=== PATIENT | female | born 2000 | race Caucasian/White ===

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

== ENCOUNTER 2021-07-03 18:45 | Inpatient (IN) | payer MEDICAID, OTHER ==
[~2021-07-03] VITALS: Ht 170.2 cm; Wt 84.4 kg
[~2021-07-03 18:45] MED LIST: ARIP10TA38 PO; CITA-144 PO; DIVA-111 PO; GUAN1TAB22 PO
[2021-07-03 20:37] LABS: BASOPHILS % (AUTO) 0.6 % (0.0-2.0); HEMATOCRIT 36.3 % (36-46); HEMOGLOBIN 12.8 g/dL (12.0-16.0); LYMPHOCYTES # (AUTO) 2.4 K/uL (1.0-4.8); LYMPHOCYTES % (AUTO) 29.1 % (22.0-44.0); MEAN CORPUSCULAR HEMOGLOBIN 32.7 pg (26.0-34.0); MEAN CORPUSCULAR HGB CONC 35.2 G/dL (31.0-37.0); MEAN CORPUSCULAR VOLUME 93 fL (80-100); MONOCYTES # (AUTO) 0.5 K/uL (0.1-1.0); MONOCYTES % (AUTO) 5.9 % (2.0-9.0); NEUTROPHILS # (AUTO) 5.2 K/uL (1.8-7.7); NEUTROPHILS % (AUTO) 63.4 % (40.0-70.0); PLATELET COUNT (AUTO) 265 K/uL (150-450); RED BLOOD CELL COUNT(AUTO) 3.91 MIL/uL (4.00-5.20); RED CELL DISTRIBUTION WIDTH 12.4 % (11.5-14.5)
[2021-07-03 20:49] LABS: ANION GAP 8 mmol/L (8-16); CALCIUM, TOTAL 8.9 mg/dL (8.8-10.5); CARBON DIOXIDE 31 mmol/L (22-29); CHLORIDE 103 mmol/L (98-107); CREATININE 0.73 mg/dL (0.60-1.30); GLOMERULAR FILTR. RATE CALC > 60 mL/min (>60); GLUCOSE,RANDOM 96 mg/dL (70-110); SODIUM SERUM 142 mmol/L (136-145); UREA NITROGEN, BLOOD 10 mg/dL (7-18)
[2021-07-03 20:50] LABS: COVID AG,FIA SOURCE NASAL SWAB
[2021-07-03 21:01] LABS: ALANINE AMINOTRANSFERASE 12 U/L (12-78); ALBUMIN 3.7 g/dL (3.4-5.0); ALKALINE PHOSPHATASE 88 U/L (46-116); ASPARTATE AMINOTRANSFERASE 13 U/L (15-37); BILIRUBIN,TOTAL 0.3 mg/dL (0.1-1.0); HCG,QUANTITATIVE < 1 mIU/mL (0-6); TOTAL PROTEIN, SERUM 7.4 g/dL (6.4-8.2); VALPROIC ACID 31 mcg/mL (50-100)
[2021-07-03 21:11] LABS: AMPHET/METH SCREEN,URINE NEGATIVE (NEGATIVE); BARBITURATE SCREEN, URINE NEGATIVE (NEGATIVE); BENZODIAZEPINES SCREEN,URINE NEGATIVE (NEGATIVE); CANNABINOID SCREEN,URINE NEGATIVE (NEGATIVE); COCAINE SCREEN,URINE NEGATIVE (NEGATIVE); METHADONE SCREEN, URINE NEGATIVE (NEGATIVE); OPIATE SCREEN,URINE NEGATIVE (NEGATIVE)
[2021-07-03 21:15] LABS: PHENCYCLIDINE SCREEN,URINE NEGATIVE (NEGATIVE)
[2021-07-03] MEDS ORDERED: OLANZapine 5 MG RAPDIS TABLET PO ONE (21:15)
[2021-07-03] MEDS ORDERED: LORazepam 2 MG TABLET PO ONE (21:15)
[2021-07-03] MEDS ORDERED: ZOLPIDEM TARTRATE 10 MG TABLET PO PRN (21:45)
[2021-07-03 21:55] LABS: APPEARANCE,URINE CLOUDY (CLEAR); BILIRUBIN,URINE NEGATIVE (NEGATIVE); GLUCOSE, URINE (UA) NEGATIVE (NEGATIVE); KETONES,URINE NEGATIVE (NEGATIVE); LEUKOCYTE ESTERASE ,URINE SMALL (NEGATIVE); NITRATE,URINE NEGATIVE (NEGATIVE); OCCULT BLOOD,URINE LARGE (NEGATIVE); PH,URINE 7.5 (5.0-8.0); PROTEIN,URINE NEGATIVE (NEGATIVE)
[2021-07-03 22:54] LABS: BACTERIA,URINE Moderate /HPF (None Seen); SQUAMOUS EPITHELIAL CELL,UR Few /LPF (None Seen); WBC,URINE 0-2 /HPF (0-5)
[2021-07-04 05:34] VITALS: BP 124/70
[2021-07-04] MEDS: LORazepam 2 MG TABLET PO PRN ×3 (06:39→16:45)
[2021-07-04] MEDS ORDERED: INFLUENZA VIRUS VACCINE QVS 2021-22 (6MO+)/PF 60 MCG/0.5 ML SYRINGE IM. ONE (07:15)
[2021-07-04 08:22] VITALS: BP 126/66
[2021-07-04] MEDS: OLANZapine 5 MG RAPDIS TABLET PO PRN (08:56)
[2021-07-04] MEDS ORDERED: ACETAMINOPHEN 325 MG TABLET PO PRN ×2 (09:30→15:00)
[2021-07-04] MEDS: NICOTINE 14 MG/24 HOUR PATCH TD PRN (12:17)
[2021-07-04] MEDS ORDERED: HydrOXYzine PAMOATE 50 MG CAPSULE PO PRN (15:00)
[2021-07-04] MEDS ORDERED: PROMETHAZINE HCL 25 MG TABLET PO PRN (15:00)
[2021-07-04] MEDS ORDERED: MAG HYDROX/AL HYDROX/SIMETH ES 30 ML SUSPENSION UDCUP PO PRN (15:00)
[2021-07-04] MEDS ORDERED: LOPERAMIDE HCL 2 MG CAPSULE PO PRN (15:00)
[2021-07-04] MEDS ORDERED: MAGNESIUM HYDROXIDE SUSPENSION 30 ML UDCUP PO PRN (15:00)
[2021-07-04] MEDS ORDERED: TUBERCULIN, PURIFIED PROTEIN DERIVATIVE 5 TU/0.1 ML SYRINGE ID ONE (15:00)
[2021-07-04] MEDS ORDERED: GuaiFENesin/D-METHORPHAN [SUGAR-FREE] 200-20MG/10 ML SYRUP UDCUP PO PRN (15:00)
[2021-07-04 16:13] VITALS: BP 117/68
[2021-07-04] MEDS: THIAMINE 100 MG TABLET PO SCH (16:45)
[2021-07-04] MEDS: DIVALPROEX SODIUM 500 MG ER TABLET PO SCH (20:31)
[2021-07-04] MEDS: MELATONIN 5 MG TABLET PO SCH (20:31)
[2021-07-04] MEDS: OLANZapine 5 MG RAPDIS TABLET PO SCH (20:32)
[2021-07-05 01:07] VITALS: BP 119/67
[2021-07-05 08:21] LABS: CHOL/HDL RATIO 4.8 (3.9-5.7); FREE T4 (FREE THYROXINE) 0.91 ng/dL (0.76-1.46); HEMOGLOBIN A1C 5.1 % (3.8-5.6); THYROID STIMULATING HORMONE 2.22 uIU/mL (0.36-3.74)
[2021-07-05] MEDS: FLUoxetine HCL 20 MG CAPSULE PO SCH (08:59)
[2021-07-05] MEDS: LORazepam 2 MG TABLET PO PRN ×2 (08:59→13:53)
[2021-07-05] MEDS: MULTIVITAMINS WITH MINERALS, THERAPEUTIC TABLET PO SCH (08:59)
[2021-07-05] MEDS: THIAMINE 100 MG TABLET PO SCH ×2 (08:59→16:38)
[2021-07-05] MEDS: OMEGA-3/DHA/EPA/FISH OIL 1,000 MG CAPSULE PO SCH (08:59)
[2021-07-05] MEDS: FOLIC ACID 1 MG TABLET PO SCH (08:59)
[2021-07-05 09:30] VITALS: BP 118/72
[2021-07-05] MEDS: OLANZapine 5 MG RAPDIS TABLET PO PRN (13:53)
[2021-07-05 16:20] VITALS: BP 100/61
[2021-07-05] MEDS: OLANZapine 5 MG RAPDIS TABLET PO SCH (20:02)
[2021-07-05] MEDS: MELATONIN 5 MG TABLET PO SCH (20:02)
[2021-07-05] MEDS: DIVALPROEX SODIUM 500 MG ER TABLET PO SCH (20:02)
[2021-07-05] MEDS ORDERED: ChlorproMAZINE HCL 100 MG TABLET PO PRN (20:30)
[2021-07-05] MEDS ORDERED: LORazepam 2 MG TABLET PO ONE (20:30)
[2021-07-05] MEDS: GABAPENTIN 300 MG CAPSULE PO SCH (20:58)
[2021-07-05] MEDS: TraZODone HCL 100 MG TABLET PO SCH (20:58)
[2021-07-05] MEDS ORDERED: ChlorproMAZINE HCL 100 MG TABLET PO SCH (21:00)
[2021-07-06 06:01] VITALS: BP 111/64
[2021-07-06] MEDS: MULTIVITAMINS WITH MINERALS, THERAPEUTIC TABLET PO SCH (08:10)
[2021-07-06] MEDS: THIAMINE 100 MG TABLET PO SCH ×2 (08:10→16:35)
[2021-07-06] MEDS: OMEGA-3/DHA/EPA/FISH OIL 1,000 MG CAPSULE PO SCH (08:10)
[2021-07-06] MEDS: FLUoxetine HCL 20 MG CAPSULE PO SCH (08:10)
[2021-07-06] MEDS: FOLIC ACID 1 MG TABLET PO SCH (08:10)
[2021-07-06] MEDS: GABAPENTIN 300 MG CAPSULE PO SCH ×4 (08:10→20:39)
[2021-07-06 08:45] VITALS: BP 120/62
[2021-07-06] MEDS: NICOTINE 14 MG/24 HOUR PATCH TD PRN (11:19)
[2021-07-06 16:14] VITALS: BP 106/69
[2021-07-06] MEDS: TraZODone HCL 100 MG TABLET PO SCH (20:39)
[2021-07-06] MEDS: MELATONIN 5 MG TABLET PO SCH (20:39)
[2021-07-06] MEDS: DIVALPROEX SODIUM 500 MG ER TABLET PO SCH (20:39)
[2021-07-06] MEDS: OLANZapine 5 MG RAPDIS TABLET PO SCH (20:40)
[2021-07-07 04:05] VITALS: BP 139/61
[2021-07-07 06:25] VITALS: BP 132/72
[2021-07-07] MEDS: LORazepam 2 MG TABLET PO PRN ×2 (06:32→12:13)
[2021-07-07] MEDS: OLANZapine 5 MG RAPDIS TABLET PO PRN (06:32)
[2021-07-07 08:36] VITALS: BP 120/75
[2021-07-07] MEDS: GABAPENTIN 300 MG CAPSULE PO SCH ×4 (08:46→20:12)
[2021-07-07] MEDS: THIAMINE 100 MG TABLET PO SCH ×2 (08:46→16:20)
[2021-07-07] MEDS: MULTIVITAMINS WITH MINERALS, THERAPEUTIC TABLET PO SCH (08:46)
[2021-07-07] MEDS: FOLIC ACID 1 MG TABLET PO SCH (08:46)
[2021-07-07] MEDS: OMEGA-3/DHA/EPA/FISH OIL 1,000 MG CAPSULE PO SCH (08:46)
[2021-07-07] MEDS: FLUoxetine HCL 20 MG CAPSULE PO SCH (08:47)
[2021-07-07] MEDS: NICOTINE 14 MG/24 HOUR PATCH TD PRN (12:13)
[2021-07-07 16:38] VITALS: BP 127/69
[2021-07-07] MEDS: TraZODone HCL 100 MG TABLET PO SCH (20:11)
[2021-07-07] MEDS: DIVALPROEX SODIUM 500 MG ER TABLET PO SCH (20:11)
[2021-07-07] MEDS: MELATONIN 5 MG TABLET PO SCH (20:12)
[2021-07-07] MEDS: OLANZapine 10 MG RAPDIS TABLET PO SCH (20:14)
[2021-07-07] MEDS ORDERED: PETROLATUM,WHITE 28 GM JELLY TP ONE (20:45)
[2021-07-08 00:27] VITALS: BP 122/70
[2021-07-08 04:06] LABS: HIV 1-2 SCREEN 4TH GEN W/RFLX Non Reactive (Non Reactive)
[2021-07-08] MEDS: FLUoxetine HCL 20 MG CAPSULE PO SCH (08:06)
[2021-07-08] MEDS: THIAMINE 100 MG TABLET PO SCH ×2 (08:06→17:00)
[2021-07-08] MEDS: MULTIVITAMINS WITH MINERALS, THERAPEUTIC TABLET PO SCH (08:06)
[2021-07-08] MEDS: LORazepam 2 MG TABLET PO PRN ×2 (08:06→12:31)
[2021-07-08] MEDS: FOLIC ACID 1 MG TABLET PO SCH (08:06)
[2021-07-08] MEDS: GABAPENTIN 300 MG CAPSULE PO SCH ×3 (08:06→17:00)
[2021-07-08] MEDS: OMEGA-3/DHA/EPA/FISH OIL 1,000 MG CAPSULE PO SCH (08:06)
[2021-07-08 08:35] VITALS: BP 121/76
[2021-07-08] MEDS: NICOTINE 14 MG/24 HOUR PATCH TD PRN (10:58)
[2021-07-08] MEDS: OLANZapine 10 MG RAPDIS TABLET PO SCH (20:17)
[2021-07-08] MEDS: TraZODone HCL 100 MG TABLET PO SCH (20:17)
[2021-07-08] MEDS: MELATONIN 5 MG TABLET PO SCH (20:17)
[2021-07-08] MEDS: DIVALPROEX SODIUM 500 MG ER TABLET PO SCH (20:17)
[2021-07-08] MEDS: GABAPENTIN 400 MG CAPSULE PO SCH (20:20)
[2021-07-09 00:54] VITALS: BP 119/72
[2021-07-09] MEDS: FLUoxetine HCL 20 MG CAPSULE PO SCH (08:25)
[2021-07-09] MEDS: GABAPENTIN 400 MG CAPSULE PO SCH ×4 (08:25→20:28)
[2021-07-09] MEDS: THIAMINE 100 MG TABLET PO SCH ×2 (08:25→16:19)
[2021-07-09] MEDS: OMEGA-3/DHA/EPA/FISH OIL 1,000 MG CAPSULE PO SCH (08:25)
[2021-07-09] MEDS: FOLIC ACID 1 MG TABLET PO SCH (08:25)
[2021-07-09] MEDS: MULTIVITAMINS WITH MINERALS, THERAPEUTIC TABLET PO SCH (08:26)
[2021-07-09 08:44] VITALS: BP 129/68
[2021-07-09] MEDS: NICOTINE 14 MG/24 HOUR PATCH TD PRN (09:08)
[2021-07-09 10:25] LABS: GLUCOMETER DEV NAME(LOC) POC.BV
[2021-07-09] MEDS: LORazepam 2 MG TABLET PO PRN ×2 (11:09→16:19)
[2021-07-09 16:44] VITALS: BP 146/73
[2021-07-09] MEDS: MELATONIN 5 MG TABLET PO SCH (20:28)
[2021-07-09] MEDS: TraZODone HCL 100 MG TABLET PO SCH (20:28)
[2021-07-09] MEDS: DIVALPROEX SODIUM 500 MG ER TABLET PO SCH (20:28)
[2021-07-09] MEDS: OLANZapine 10 MG RAPDIS TABLET PO SCH (20:28)
[2021-07-10 01:04] VITALS: BP 129/70
[2021-07-10] MEDS: GABAPENTIN 400 MG CAPSULE PO SCH ×2 (08:09→12:09)
[2021-07-10] MEDS: OMEGA-3/DHA/EPA/FISH OIL 1,000 MG CAPSULE PO SCH (08:09)
[2021-07-10] MEDS: THIAMINE 100 MG TABLET PO SCH (08:09)
[2021-07-10] MEDS: FOLIC ACID 1 MG TABLET PO SCH (08:10)
[2021-07-10] MEDS: MULTIVITAMINS WITH MINERALS, THERAPEUTIC TABLET PO SCH (08:10)
[2021-07-10] MEDS: FLUoxetine HCL 20 MG CAPSULE PO SCH (08:10)
[2021-07-10 08:27] VITALS: BP 106/60
[2021-07-10] MEDS: NICOTINE 14 MG/24 HOUR PATCH TD PRN (08:43)
[2021-07-10] MEDS ORDERED: DIVA-80 PO (09:53)
[2021-07-10] MEDS ORDERED: TRAZ-257 PO (09:53)
[2021-07-10] MEDS ORDERED: GABA-1201 PO (09:53)
[2021-07-10] MEDS ORDERED: OMEG-135 PO (09:53)
[2021-07-10] MEDS ORDERED: OLAN10TA26 PO (09:53)
[2021-07-10] MEDS ORDERED: PROZ20 PO (09:53)
[2021-07-10] MEDS ORDERED: MELA5TAB40 PO (09:53)
== END 2021-07-10 13:16 | disposition home or self-care (01) | DRG 753 ==
LOC: EMS 18:59 → B3A 07-04 00:16 → B2S 07-04 02:15
PROVIDERS: ADMIT Psychiatry & Neurology Psychiatry; ATTEND Psychiatry & Neurology Psychiatry
DX: F31.64 Bipolar disorder, current episode mixed, severe, with psychotic features (principal); R45.851 Suicidal ideations; F79 Unspecified intellectual disabilities; F12.90 Cannabis use, unspecified, uncomplicated; F43.10 Post-traumatic stress disorder, unspecified; F90.9 Attention-deficit hyperactivity disorder, unspecified type; Z63.9 Problem related to primary support group, unspecified; G47.00 Insomnia, unspecified; Z55.9 Problems related to education and literacy, unspecified; Z59.9 Problem related to housing and economic circumstances, unspecified; Z65.3 Problems related to other legal circumstances; Z79.899 Other long term (current) drug therapy; Z20.822 Contact with and (suspected) exposure to COVID-19
CPT/HCPCS: 80053; 80061; 80164; 81001; 83036; 84439; 84443; 84702; 85025; 86592; 87086; 87389; 87491; 87591; 90686; 99285; G0480; Q9967

== ENCOUNTER 2023-04-29 01:04 | Inpatient (IN) | payer MEDICAID ==
[~2023-04-29] VITALS: Ht 165.1 cm; Wt 97.1 kg
[~2023-04-29 01:04] MED LIST changes: -ARIP10TA38 PO; -CITA-144 PO; -DIVA-111 PO; +DIVA500T53 PO; +GABA-1201 PO; -GUAN1TAB22 PO; +MELA5TAB40 PO; +OLAN10TA26 PO; +OMEG-135 PO; +PROZ20 PO; +TRAZ-257 PO
[2023-04-29] MEDS ORDERED: IBUPROFEN 600 MG TABLET PO PRN (03:30)
[2023-04-29] MEDS ORDERED: BACITRACIN 28 GM OINTMENT TP PRN (03:30)
[2023-04-29] MEDS ORDERED: ALBUTEROL SULFATE HFA 90 MCG/PUFF 8 GM INHALER IH PRN (03:30)
[2023-04-29] MEDS ORDERED: DOCUSATE SODIUM 100 MG CAPSULE PO PRN (03:30)
[2023-04-29] MEDS ORDERED: MAG HYDROX/ALUMINUM HYD/SIMETH ES 30 ML SUSPENSION UDCUP PO PRN (03:30)
[2023-04-29] MEDS ORDERED: CloNIDine HCL 0.1 MG TABLET PO PRN (03:30)
[2023-04-29] MEDS ORDERED: BENZOCAINE/MENTHOL LOZENGE PO PRN (03:30)
[2023-04-29] MEDS ORDERED: ACETAMINOPHEN 325 MG TABLET PO PRN (03:30)
[2023-04-29] MEDS ORDERED: MAGNESIUM HYDROXIDE SUSPENSION 30 ML UDCUP PO PRN (03:30)
[2023-04-29] MEDS ORDERED: ONDANSETRON HCL 4 MG TABLET PO PRN (03:30)
[2023-04-29] MEDS ORDERED: OMEPRAZOLE 20 MG CAPSULE PO PRN (03:30)
[2023-04-29] MEDS ORDERED: PETROLATUM,WHITE 28 GM JELLY TP PRN (03:30)
[2023-04-29 03:33] VITALS: BP 127/69; PULSE 99; RESP 18; TEMP 98; O2SAT 99
[2023-04-29] MEDS: LORazepam 2 MG TABLET PO PRN ×2 (03:50→08:10)
[2023-04-29] MEDS ORDERED: INFLUENZA VIRUS VACCINE QVS 2023-24 (6MO+)/PF 60 MCG/0.5 ML SYRINGE IM. ONE (06:30)
[2023-04-29] MEDS: HALOPERIDOL 5 MG TABLET PO PRN (08:10)
[2023-04-29 08:11] VITALS: BP 118/79; PULSE 96; RESP 16; TEMP 98.2; O2SAT 98
[2023-04-29] MEDS ORDERED: DIVA-112 PO (09:10)
[2023-04-29] MEDS ORDERED: OMEG1CAP45 PO (09:10)
[2023-04-29] MEDS ORDERED: IBUP-2492 PO (09:10)
[2023-04-29] MEDS ORDERED: CHLO50TA61 PO (09:10)
[2023-04-29] MEDS ORDERED: CHLO25TA69 PO (09:10)
[2023-04-29] MEDS ORDERED: BENZ1TAB84 PO (09:10)
[2023-04-29] MEDS ORDERED: TRAZ150T80 PO (09:10)
[2023-04-29] MEDS ORDERED: OLAN1TAB3 PO (09:10)
[2023-04-29] MEDS ORDERED: LOPE-232 PO (09:10)
[2023-04-29] MEDS: DIVALPROEX SODIUM 500 MG DR TABLET PO SCH (16:02)
[2023-04-29 20:00] VITALS: BP 142/87; PULSE 89; RESP 18; TEMP 97.3; O2SAT 98
[2023-04-29] MEDS: OLANZapine 10 MG RAPDIS TABLET PO SCH (20:05)
[2023-04-29] MEDS: ZOLPIDEM TARTRATE 10 MG TABLET PO PRN (20:46)
[2023-04-30 08:03] LABS: BASOPHILS % (AUTO) 0.6 % (0.0-2.0); EOSINOPHILS % (AUTO) 0.7 % (1.0-6.0); HEMATOCRIT 35.2 % (36-46); HEMOGLOBIN 12.4 g/dL (12.0-16.0); LYMPHOCYTES # (AUTO) 3.4 K/uL (1.0-4.8); LYMPHOCYTES % (AUTO) 40.6 % (22.0-44.0); MEAN CORPUSCULAR HEMOGLOBIN 32.8 pg (26.0-34.0); MEAN CORPUSCULAR HGB CONC 35.2 G/dL (31.0-37.0); MEAN CORPUSCULAR VOLUME 93 fL (80-100); MONOCYTES # (AUTO) 0.7 K/uL (0.1-1.0); MONOCYTES % (AUTO) 8.5 % (2.0-9.0); NEUTROPHILS # (AUTO) 4.1 K/uL (1.8-7.7); NEUTROPHILS % (AUTO) 49.6 % (40.0-70.0); PLATELET COUNT (AUTO) 277 K/uL (150-450); RED BLOOD CELL COUNT(AUTO) 3.78 MIL/uL (4.00-5.20); RED CELL DISTRIBUTION WIDTH 13.1 % (11.5-14.5); WHITE BLOOD COUNT (AUTO) 8.3 K/uL (4.5-11.0)
[2023-04-30 08:04] LABS: ALANINE AMINOTRANSFERASE 13 U/L (12-78); ALBUMIN 3.3 g/dL (3.4-5.0); ALKALINE PHOSPHATASE 61 U/L (46-116); ANION GAP 4 mmol/L (8-16); ASPARTATE AMINOTRANSFERASE 13 U/L (15-37); BILIRUBIN,TOTAL 0.8 mg/dL (0.1-1.0); CALCIUM, TOTAL 8.6 mg/dL (8.8-10.5); CARBON DIOXIDE 30 mmol/L (22-29); CHLORIDE 105 mmol/L (98-107); CHOL/HDL RATIO 6.5 (3.9-5.7); CHOLESTEROL 227 mg/dL (131-200); CREATININE 0.44 mg/dL (0.60-1.30); FREE T4 (FREE THYROXINE) 1.07 ng/dL (0.76-1.46); GLOMERULAR FILTR. RATE CALC > 60 mL/min (>60); GLUCOSE,RANDOM 92 mg/dL (70-110); HCG,QUANTITATIVE < 1 mIU/mL (0-6); HDL CHOLESTEROL 35 mg/dL (40-60); LDL CHOL (CALC.) 161 mg/dL (0-130); POTASSIUM 3.9 mmol/L (3.5-5.1); SODIUM SERUM 139 mmol/L (136-145); THYROID STIMULATING HORMONE 2.25 uIU/mL (0.36-3.74); TOTAL PROTEIN, SERUM 6.8 g/dL (6.4-8.2); TRIGLYCERIDES 153 mg/dL (15-150); UREA NITROGEN, BLOOD 6 mg/dL (7-18)
[2023-04-30 08:32] VITALS: BP 121/69; PULSE 80; RESP 16; TEMP 97.9; O2SAT 96
[2023-04-30] MEDS: HALOPERIDOL 5 MG TABLET PO PRN ×2 (08:40→16:09)
[2023-04-30] MEDS: DIVALPROEX SODIUM 500 MG DR TABLET PO SCH ×2 (08:40→16:09)
[2023-04-30] MEDS: LORazepam 2 MG TABLET PO PRN ×2 (08:40→16:09)
[2023-04-30] MEDS ORDERED: PEG 400/HYPROMELLOSE/GLYCERIN 15 ML OPHTHALMIC SOLUTION OU PRN (14:45)
[2023-04-30] MEDS: RisperiDONE 3 MG TABLET PO SCH (16:09)
[2023-04-30] MEDS: LITHIUM CARBONATE 300 MG CAPSULE PO SCH (16:09)
[2023-04-30] MEDS: OLANZapine 10 MG RAPDIS TABLET PO SCH (20:30)
[2023-04-30] MEDS: BENZTROPINE MESYLATE 2 MG TABLET PO SCH (20:31)
[2023-04-30 20:55] VITALS: BP 131/85; PULSE 99; RESP 18; TEMP 97.3
[2023-04-30] MEDS: LOPERAMIDE HCL 2 MG CAPSULE PO PRN (22:10)
[2023-05-01] MEDS: HALOPERIDOL 5 MG TABLET PO PRN (08:10)
[2023-05-01] MEDS: DIVALPROEX SODIUM 500 MG DR TABLET PO SCH ×2 (08:10→16:16)
[2023-05-01] MEDS: LITHIUM CARBONATE 300 MG CAPSULE PO SCH ×2 (08:10→16:15)
[2023-05-01] MEDS: RisperiDONE 3 MG TABLET PO SCH ×2 (08:10→16:15)
[2023-05-01] MEDS: LORazepam 2 MG TABLET PO PRN ×2 (08:10→17:54)
[2023-05-01 09:04] VITALS: BP 129/75; PULSE 100; RESP 18; TEMP 97.5; O2SAT 98
[2023-05-01] MEDS: BENZTROPINE MESYLATE 2 MG TABLET PO SCH (20:49)
[2023-05-01] MEDS: OLANZapine 10 MG RAPDIS TABLET PO SCH (20:53)
[2023-05-01 23:16] VITALS: BP 144/83; PULSE 79; RESP 18; TEMP 97.5; O2SAT 99
[2023-05-02] MEDS: DIVALPROEX SODIUM 500 MG DR TABLET PO SCH ×2 (08:09→16:17)
[2023-05-02] MEDS: LITHIUM CARBONATE 300 MG CAPSULE PO SCH ×2 (08:09→16:17)
[2023-05-02] MEDS: LORazepam 2 MG TABLET PO PRN ×2 (08:09→20:07)
[2023-05-02] MEDS: RisperiDONE 3 MG TABLET PO SCH ×2 (08:09→16:17)
[2023-05-02 08:55] VITALS: BP 146/73; PULSE 100; RESP 17; TEMP 97.6; O2SAT 97
[2023-05-02] MEDS: LOPERAMIDE HCL 2 MG CAPSULE PO PRN (18:02)
[2023-05-02] MEDS: BENZTROPINE MESYLATE 2 MG TABLET PO SCH (20:07)
[2023-05-02] MEDS: OLANZapine 10 MG RAPDIS TABLET PO SCH (20:07)
[2023-05-02 21:00] VITALS: BP 132/62; PULSE 79; RESP 18; TEMP 97.8
[2023-05-02] MEDS: ZOLPIDEM TARTRATE 10 MG TABLET PO PRN (21:26)
[2023-05-03] MEDS: RisperiDONE 3 MG TABLET PO SCH ×2 (08:29→16:55)
[2023-05-03] MEDS: LITHIUM CARBONATE 300 MG CAPSULE PO SCH ×2 (08:29→16:55)
[2023-05-03] MEDS: DIVALPROEX SODIUM 500 MG DR TABLET PO SCH ×2 (08:29→16:55)
[2023-05-03 08:54] VITALS: BP 120/70; PULSE 100; RESP 16; TEMP 98.6; O2SAT 97
[2023-05-03] MEDS: LORazepam 2 MG TABLET PO PRN ×2 (12:44→16:55)
[2023-05-03] MEDS: HALOPERIDOL 5 MG TABLET PO PRN (12:44)
[2023-05-03 16:50] VITALS: RESP 18
[2023-05-03 18:00] VITALS: RESP 18
[2023-05-03 20:20] VITALS: BP 124/83; PULSE 100; RESP 18; TEMP 97.5
[2023-05-03 20:30] VITALS: RESP 19
[2023-05-03] MEDS: BENZTROPINE MESYLATE 2 MG TABLET PO SCH (20:54)
[2023-05-03] MEDS: OLANZapine 10 MG RAPDIS TABLET PO SCH (20:54)
[2023-05-04] MEDS: LITHIUM CARBONATE 300 MG CAPSULE PO SCH (08:07)
[2023-05-04] MEDS: DIVALPROEX SODIUM 500 MG DR TABLET PO SCH (08:08)
[2023-05-04] MEDS: RisperiDONE 3 MG TABLET PO SCH (08:08)
[2023-05-04] MEDS: HALOPERIDOL 5 MG TABLET PO PRN (08:28)
[2023-05-04] MEDS: LORazepam 2 MG TABLET PO PRN (08:28)
[2023-05-04 08:33] LABS: LITHIUM 0.3 mmol/L (0.60-1.20)
[2023-05-04 09:33] VITALS: BP 149/73; PULSE 108; RESP 18; TEMP 98.4
[2023-05-04] MEDS ORDERED: DIVA-112 PO (13:15)
[2023-05-04] MEDS ORDERED: LITH300C3 PO (13:15)
[2023-05-04] MEDS ORDERED: OLAN10TA26 PO (13:16)
[2023-05-04] MEDS ORDERED: RISP3TAB63 PO (13:16)
[2023-05-04] MEDS ORDERED: BENZ2TAB71 PO (13:17)
== END 2023-05-04 14:15 | disposition home or self-care (01) | DRG 750 ==
LOC: B3A 02:05
PROVIDERS: ADMIT Psychiatry & Neurology Psychiatry; ATTEND Psychiatry & Neurology Psychiatry
DX: F25.9 Schizoaffective disorder, unspecified (principal); F29 Unspecified psychosis not due to a substance or known physiological condition; Z81.8 Family history of other mental and behavioral disorders; F32.9 Major depressive disorder, single episode, unspecified; F41.9 Anxiety disorder, unspecified; G47.00 Insomnia, unspecified; E66.9 Obesity, unspecified; K59.00 Constipation, unspecified; Z68.35 Body mass index [BMI] 35.0-35.9, adult
CPT/HCPCS: 80053; 80061; 80164; 80178; 84436; 84439; 84443; 84702; 85025; 87081

== ENCOUNTER 2023-06-18 23:22 | Inpatient (IN) | payer MEDICAID, OTHER ==
[~2023-06-18] VITALS: Ht 162.6 cm; Wt 97.1 kg
[~2023-06-18 23:22] MED LIST changes: +BENZ2TAB71 PO; +DIVA-112 PO; -DIVA500T53 PO; -GABA-1201 PO; +LITH300C3 PO; -MELA5TAB40 PO; -OMEG-135 PO; -PROZ20 PO; +RISP3TAB63 PO; -TRAZ-257 PO
[2023-06-19 00:04] LABS: BASOPHILS % (AUTO) 0.5 % (0.0-2.0); EOSINOPHILS % (AUTO) 1.1 % (1.0-6.0); HEMATOCRIT 35.3 % (36-46); LYMPHOCYTES # (AUTO) 2.9 K/uL (1.0-4.8); LYMPHOCYTES % (AUTO) 30.5 % (22.0-44.0); MEAN CORPUSCULAR HEMOGLOBIN 31.8 pg (26.0-34.0); MEAN CORPUSCULAR VOLUME 94 fL (80-100); MONOCYTES # (AUTO) 0.7 K/uL (0.1-1.0); MONOCYTES % (AUTO) 7.8 % (2.0-9.0); NEUTROPHILS # (AUTO) 5.7 K/uL (1.8-7.7); NEUTROPHILS % (AUTO) 60.1 % (40.0-70.0); PLATELET COUNT (AUTO) 265 K/uL (150-450); RED BLOOD CELL COUNT(AUTO) 3.78 MIL/uL (4.00-5.20); RED CELL DISTRIBUTION WIDTH 12.8 % (11.5-14.5); WHITE BLOOD COUNT (AUTO) 9.4 K/uL (4.5-11.0)
[2023-06-19 00:14] LABS: ANION GAP 10 mmol/L (8-16); CALCIUM, TOTAL 8.8 mg/dL (8.8-10.5); CARBON DIOXIDE 24 mmol/L (22-29); CHLORIDE 104 mmol/L (98-107); CREATININE 0.57 mg/dL (0.60-1.30); GLOMERULAR FILTR. RATE CALC > 60 mL/min (>60); GLUCOSE,RANDOM 109 mg/dL (70-110); POTASSIUM 3.7 mmol/L (3.5-5.1); SODIUM SERUM 138 mmol/L (136-145); UREA NITROGEN, BLOOD 7 mg/dL (7-18)
[2023-06-19 00:19] LABS: ALANINE AMINOTRANSFERASE 9 U/L (12-78); ALBUMIN 3.6 g/dL (3.4-5.0); ALKALINE PHOSPHATASE 65 U/L (46-116); ASPARTATE AMINOTRANSFERASE 12 U/L (15-37); BILIRUBIN,TOTAL 0.3 mg/dL (0.1-1.0); TOTAL PROTEIN, SERUM 6.9 g/dL (6.4-8.2)
[2023-06-19 00:38] LABS: ALCOHOL, BLOOD (SERUM) < 3 mg/dL (0-10)
[2023-06-19] MEDS ORDERED: OLANZapine 5 MG TABLET PO ONE (01:45)
[2023-06-19] MEDS ORDERED: ACETAMINOPHEN 500 MG TABLET PO ONE (02:00)
[2023-06-19] MEDS ORDERED: IBUPROFEN 600 MG TABLET PO ONE (02:00)
[2023-06-19 02:04] LABS: LITHIUM 0.4 mmol/L (0.60-1.20)
[2023-06-19 03:45] LABS: COVID AG,FIA SOURCE NASAL SWAB
[2023-06-19] MEDS ORDERED: LORazepam 2 MG TABLET PO PRN (03:45)
[2023-06-19] MEDS ORDERED: ZOLPIDEM TARTRATE 10 MG TABLET PO PRN (03:45)
[2023-06-19 03:56] LABS: SARS-COV2 (COVID) ANTIGEN,FIA Negative (Negative)
[2023-06-19 08:12] VITALS: BP 125/67; PULSE 105; RESP 16; TEMP 97.1; O2SAT 100
[2023-06-19] MEDS: DIVALPROEX SODIUM 500 MG DR TABLET PO SCH (17:26)
[2023-06-19] MEDS: LITHIUM CARBONATE 300 MG CAPSULE PO SCH (17:26)
[2023-06-19] MEDS: RisperiDONE 3 MG TABLET PO SCH (17:26)
[2023-06-19] MEDS ORDERED: IBUPROFEN 400 MG TABLET PO PRN (17:30)
[2023-06-19] MEDS: BENZTROPINE MESYLATE 2 MG TABLET PO SCH (20:34)
[2023-06-19 21:57] VITALS: BP 118/72; PULSE 78; RESP 18; TEMP 97.5; O2SAT 98
[2023-06-20] MEDS: LITHIUM CARBONATE 300 MG CAPSULE PO SCH ×2 (08:18→16:19)
[2023-06-20] MEDS: RisperiDONE 3 MG TABLET PO SCH ×2 (08:18→16:19)
[2023-06-20] MEDS: DIVALPROEX SODIUM 500 MG DR TABLET PO SCH ×2 (08:18→16:19)
[2023-06-20 08:22] VITALS: BP 103/65; PULSE 78; RESP 16; TEMP 97.9; O2SAT 98
[2023-06-20 10:17] VITALS: RESP 16; O2SAT 98
[2023-06-20 11:17] VITALS: RESP 16; O2SAT 99
[2023-06-20] MEDS: HALOPERIDOL 5 MG TABLET PO PRN (16:29)
[2023-06-20 20:05] VITALS: BP 122/76; PULSE 100; RESP 18; TEMP 97.8; O2SAT 100
[2023-06-20] MEDS: BENZTROPINE MESYLATE 2 MG TABLET PO SCH (20:13)
[2023-06-20] MEDS ORDERED: CloNIDine HCL 0.1 MG TABLET PO PRN (23:15)
[2023-06-20] MEDS ORDERED: LOPERAMIDE HCL 2 MG CAPSULE PO PRN (23:15)
[2023-06-20] MEDS ORDERED: NICOTINE 14 MG/24 HOUR PATCH TD PRN (23:15)
[2023-06-20] MEDS ORDERED: GuaiFENesin/D-METHORPHAN [SUGAR-FREE] 200-20MG/10 ML SYRUP UDCUP PO PRN (23:15)
[2023-06-20] MEDS ORDERED: DOCUSATE SODIUM 100 MG CAPSULE PO PRN (23:15)
[2023-06-20] MEDS ORDERED: IBUPROFEN 400 MG TABLET PO PRN (23:15)
[2023-06-20] MEDS ORDERED: MAG HYDROX/ALUMINUM HYD/SIMETH ES 30 ML SUSPENSION UDCUP PO PRN (23:15)
[2023-06-20] MEDS ORDERED: ACETAMINOPHEN 325 MG TABLET PO PRN (23:15)
[2023-06-20] MEDS ORDERED: PETROLATUM,WHITE 28 GM JELLY TP PRN (23:15)
[2023-06-20] MEDS ORDERED: ONDANSETRON HCL 4 MG TABLET PO PRN (23:15)
[2023-06-20] MEDS ORDERED: MAGNESIUM HYDROXIDE SUSPENSION 30 ML UDCUP PO PRN (23:15)
[2023-06-20] MEDS ORDERED: ALBUTEROL SULFATE HFA 90 MCG/PUFF 8 GM INHALER IH PRN (23:15)
[2023-06-21] MEDS: HALOPERIDOL 5 MG TABLET PO PRN (07:58)
[2023-06-21] MEDS: LITHIUM CARBONATE 300 MG CAPSULE PO SCH (08:00)
[2023-06-21] MEDS: DIVALPROEX SODIUM 500 MG DR TABLET PO SCH (08:00)
[2023-06-21] MEDS: RisperiDONE 3 MG TABLET PO SCH (08:00)
[2023-06-21 08:31] VITALS: BP 122/69; PULSE 100; RESP 16; TEMP 98; O2SAT 96
[2023-06-21 08:35] LABS: APPEARANCE,URINE HAZY (CLEAR); BILIRUBIN,URINE NEGATIVE (NEGATIVE); COLOR,URINE COLORLESS (YELLOW); GLUCOSE, URINE (UA) NEGATIVE (NEGATIVE); KETONES,URINE NEGATIVE (NEGATIVE); LEUKOCYTE ESTERASE ,URINE TRACE (NEGATIVE); NITRATE,URINE NEGATIVE (NEGATIVE); OCCULT BLOOD,URINE LARGE (NEGATIVE); PH,URINE 7.5 (5.0-8.0); PH,URINE DRUG SCREEN 7.5 (5.0-8.0); PROTEIN,URINE NEGATIVE (NEGATIVE); SPECIFIC GRAVITIY, URINE 1.008 (1.003-1.030); UROBILINOGEN,URINE <=1.0 mg/dL (<=1.0)
[2023-06-21 08:47] LABS: BACTERIA,URINE None Seen /HPF (None Seen); RBC,URINE 51-100 /HPF (0-2); WBC,URINE None Seen /HPF (0-5)
[2023-06-21 08:48] LABS: SQUAMOUS EPITHELIAL CELL,UR Few /LPF (None Seen)
[2023-06-21 08:57] LABS: ALCOHOL, URINE DRUG SCREEN NEGATIVE (NEGATIVE); AMPHET/METH SCREEN,URINE NEGATIVE (NEGATIVE); BARBITURATE SCREEN, URINE NEGATIVE (NEGATIVE); BENZODIAZEPINES SCREEN,URINE NEGATIVE (NEGATIVE); CANNABINOID SCREEN,URINE NEGATIVE (NEGATIVE); COCAINE SCREEN,URINE NEGATIVE (NEGATIVE); METHADONE SCREEN, URINE NEGATIVE (NEGATIVE); OPIATE SCREEN,URINE NEGATIVE (NEGATIVE); PHENCYCLIDINE SCREEN,URINE NEGATIVE (NEGATIVE)
[2023-06-21] MEDS ORDERED: INFLUENZA VIRUS VACCINE QVS 2023-24 (6MO+)/PF 60 MCG/0.5 ML SYRINGE IM. ONE (11:15)
[2023-06-22] MEDS ORDERED: DIVA-112 PO (10:53)
[2023-06-22] MEDS ORDERED: BENZ2TAB71 PO (10:53)
[2023-06-22] MEDS ORDERED: RISP3TAB63 PO (10:53)
[2023-06-22] MEDS ORDERED: LITH300C3 PO (10:53)
== END 2023-06-21 15:22 | disposition home or self-care (01) | DRG 750 ==
LOC: EMS 23:23 → B3A 06-19 04:51
PROVIDERS: ADMIT Psychiatry & Neurology Child & Adolescent Psychiatry; ATTEND Psychiatry & Neurology Child & Adolescent Psychiatry
DX: F25.1 Schizoaffective disorder, depressive type (principal); F79 Unspecified intellectual disabilities; R45.851 Suicidal ideations; G47.00 Insomnia, unspecified; Z20.822 Contact with and (suspected) exposure to COVID-19; F90.9 Attention-deficit hyperactivity disorder, unspecified type; F12.90 Cannabis use, unspecified, uncomplicated; F25.0 Schizoaffective disorder, bipolar type; F41.9 Anxiety disorder, unspecified; F43.10 Post-traumatic stress disorder, unspecified; F84.0 Autistic disorder; Z79.899 Other long term (current) drug therapy; Z88.8 Allergy status to other drugs, medicaments and biological substances; Z72.89 Other problems related to lifestyle
CPT/HCPCS: 80053; 80164; 80178; 80307; 81001; 84703; 85025; 99285; G0480

== ENCOUNTER 2023-10-30 21:22 | Inpatient (IN) | payer MEDICAID, OTHER ==
[~2023-10-30] VITALS: Ht 160 cm; Wt 87.9 kg
[~2023-10-30 21:22] MED LIST changes: -OLAN10TA26 PO; +RISP3TAB35 PO; -RISP3TAB63 PO; +RISP3TAB77 PO
[2023-10-30 22:35] LABS: COVID AG,FIA SOURCE NASAL SWAB
[2023-10-30 22:38] LABS: BASOPHILS % (AUTO) 0.5 % (0.0-2.0); EOSINOPHILS % (AUTO) 0.5 % (1.0-6.0); HEMATOCRIT 37.1 % (36-46); HEMOGLOBIN 12.8 g/dL (12.0-16.0); LYMPHOCYTES # (AUTO) 2.6 K/uL (1.0-4.8); LYMPHOCYTES % (AUTO) 22.2 % (22.0-44.0); MEAN CORPUSCULAR HGB CONC 34.6 G/dL (31.0-37.0); MEAN CORPUSCULAR VOLUME 92 fL (80-100); MONOCYTES # (AUTO) 0.8 K/uL (0.1-1.0); MONOCYTES % (AUTO) 7.3 % (2.0-9.0); NEUTROPHILS % (AUTO) 69.5 % (40.0-70.0); PLATELET COUNT (AUTO) 232 K/uL (150-450); RED BLOOD CELL COUNT(AUTO) 4.02 MIL/uL (4.00-5.20); RED CELL DISTRIBUTION WIDTH 12.3 % (11.5-14.5); WHITE BLOOD COUNT (AUTO) 11.5 K/uL (4.5-11.0)
[2023-10-30 22:47] LABS: ANION GAP 10 mmol/L (8-16); CALCIUM, TOTAL 9.3 mg/dL (8.8-10.5); CARBON DIOXIDE 26 mmol/L (22-29); CHLORIDE 103 mmol/L (98-107); CREATININE 0.58 mg/dL (0.60-1.30); GLOMERULAR FILTR. RATE CALC > 60 mL/min (>60); GLUCOSE,RANDOM 94 mg/dL (70-110); POTASSIUM 3.5 mmol/L (3.5-5.1); SODIUM SERUM 139 mmol/L (136-145); UREA NITROGEN, BLOOD 5 mg/dL (7-18)
[2023-10-30 22:53] LABS: SARS-COV2 (COVID) ANTIGEN,FIA Negative (Negative)
[2023-10-30 23:00] LABS: ALCOHOL, BLOOD (SERUM) < 3 mg/dL (0-10)
[2023-10-31] MEDS ORDERED: HALOPERIDOL 5 MG TABLET PO PRN (01:00)
[2023-10-31 06:17] VITALS: BP 102/62; PULSE 95; RESP 18; TEMP 98; O2SAT 99
[2023-10-31 06:30] VITALS: BP 102/62; PULSE 95; RESP 18; TEMP 98
[2023-10-31] MEDS ORDERED: NICOTINE 14 MG/24 HOUR PATCH TD PRN (07:30)
[2023-10-31] MEDS ORDERED: DOCUSATE SODIUM 100 MG CAPSULE PO PRN (07:30)
[2023-10-31] MEDS ORDERED: CloNIDine HCL 0.1 MG TABLET PO PRN (07:30)
[2023-10-31] MEDS ORDERED: MAGNESIUM HYDROXIDE SUSPENSION 30 ML UDCUP PO PRN (07:30)
[2023-10-31] MEDS ORDERED: ONDANSETRON HCL 4 MG TABLET PO PRN (07:30)
[2023-10-31] MEDS ORDERED: ALBUTEROL SULFATE HFA 90 MCG/PUFF 8 GM INHALER IH PRN (07:30)
[2023-10-31] MEDS ORDERED: MAG HYDROX/ALUMINUM HYD/SIMETH ES 30 ML SUSPENSION UDCUP PO PRN (07:30)
[2023-10-31] MEDS ORDERED: PETROLATUM,WHITE 28 GM JELLY TP PRN (07:30)
[2023-10-31] MEDS ORDERED: GuaiFENesin/D-METHORPHAN [SUGAR-FREE] 200-20MG/10 ML SYRUP UDCUP PO PRN (07:30)
[2023-10-31 08:36] VITALS: BP 119/66; PULSE 80; RESP 17; TEMP 97.3; O2SAT 98
[2023-10-31] MEDS: LITHIUM CARBONATE 300 MG CAPSULE PO SCH (12:28)
[2023-10-31] MEDS: RisperiDONE 3 MG TABLET PO SCH (12:28)
[2023-10-31] MEDS: DIVALPROEX SODIUM 500 MG DR TABLET PO SCH (12:28)
[2023-10-31] MEDS: IBUPROFEN 400 MG TABLET PO PRN (17:14)
[2023-10-31] MEDS: BENZTROPINE MESYLATE 2 MG TABLET PO SCH (20:08)
[2023-10-31] MEDS: ZOLPIDEM TARTRATE 10 MG TABLET PO PRN (20:28)
[2023-10-31 20:45] VITALS: BP 115/89; PULSE 111; RESP 20; TEMP 97.4; O2SAT 97
[2023-11-01 08:44] LABS: CHOL/HDL RATIO 4.8 (3.9-5.7); THYROID STIMULATING HORMONE 5.22 uIU/mL (0.36-3.74)
[2023-11-01 08:51] VITALS: BP 114/71; PULSE 100; RESP 18; TEMP 97.5; O2SAT 99
[2023-11-01 08:58] LABS: HEMOGLOBIN A1C 4.9 % (3.8-5.6)
[2023-11-01 09:46] LABS: LITHIUM 0.62 mmol/L (0.60-1.20)
[2023-11-01] MEDS: LOPERAMIDE HCL 2 MG CAPSULE PO PRN (17:56)
[2023-11-01] MEDS: LORazepam 2 MG TABLET PO PRN (20:14)
[2023-11-01] MEDS: ACETAMINOPHEN 325 MG TABLET PO PRN (20:32)
[2023-11-01 21:28] VITALS: BP 107/68; PULSE 100; TEMP 97.4; O2SAT 97
[2023-11-01 23:31] VITALS: RESP 17; O2SAT 96
[2023-11-02 08:29] VITALS: BP 100/63; PULSE 85; RESP 16; TEMP 98; O2SAT 98
[2023-11-02] MEDS ORDERED: RISP3TAB35 PO (11:19)
[2023-11-02] MEDS ORDERED: LITH300C3 PO (11:19)
[2023-11-02] MEDS ORDERED: BENZ2TAB71 PO (11:19)
[2023-11-02] MEDS ORDERED: DIVA-112 PO (11:19)
== END 2023-11-02 18:45 | disposition home or self-care (01) | DRG 750 ==
LOC: EMS 21:29 → B3A 10-31 01:23 → UNDOADMIN 10-31 01:23 → B3A 10-31 04:00
PROVIDERS: ADMIT Psychiatry & Neurology Child & Adolescent Psychiatry; ATTEND Psychiatry & Neurology Child & Adolescent Psychiatry
DX: F25.0 Schizoaffective disorder, bipolar type (principal); R45.851 Suicidal ideations; D64.9 Anemia, unspecified; G47.00 Insomnia, unspecified; F41.9 Anxiety disorder, unspecified; R73.9 Hyperglycemia, unspecified; Z79.899 Other long term (current) drug therapy; R00.0 Tachycardia, unspecified; D72.829 Elevated white blood cell count, unspecified; F84.0 Autistic disorder; F90.9 Attention-deficit hyperactivity disorder, unspecified type
CPT/HCPCS: 80048; 80061; 80164; 80178; 83036; 84439; 84443; 84703; 85025; 99285; G0480

== ENCOUNTER 2024-02-09 10:43 | Emergency (ER) | payer MEDICAID, OTHER ==
[~2024-02-09] VITALS: Ht 162.6 cm; Wt 68.2 kg
[~2024-02-09 10:43] MED LIST changes: -BENZ2TAB71 PO; +BENZ2TAB84 PO; -RISP3TAB77 PO
[2024-02-09 11:19] LABS: COVID AG,FIA SOURCE NPH
[2024-02-09 11:21] LABS: BASOPHILS % (AUTO) 0.7 % (0.0-2.0); EOSINOPHILS % (AUTO) 0.4 % (1.0-6.0); HEMATOCRIT 36.2 % (36-46); HEMOGLOBIN 12.3 g/dL (12.0-16.0); LYMPHOCYTES # (AUTO) 1.3 K/uL (1.0-4.8); MEAN CORPUSCULAR HEMOGLOBIN 32.2 pg (26.0-34.0); MEAN CORPUSCULAR VOLUME 95 fL (80-100); MONOCYTES # (AUTO) 0.7 K/uL (0.1-1.0); MONOCYTES % (AUTO) 6.8 % (2.0-9.0); NEUTROPHILS # (AUTO) 8.8 K/uL (1.8-7.7); NEUTROPHILS % (AUTO) 80.1 % (40.0-70.0); PLATELET COUNT (AUTO) 273 K/uL (150-450); RED BLOOD CELL COUNT(AUTO) 3.82 MIL/uL (4.00-5.20); RED CELL DISTRIBUTION WIDTH 12.3 % (11.5-14.5)
[2024-02-09 11:33] LABS: ANION GAP 11 mmol/L (8-16); CALCIUM, TOTAL 9.1 mg/dL (8.8-10.5); CARBON DIOXIDE 24 mmol/L (22-29); CHLORIDE 106 mmol/L (98-107); CREATININE 0.54 mg/dL (0.60-1.30); GLOMERULAR FILTR. RATE CALC > 60 mL/min (>60); GLUCOSE,RANDOM 103 mg/dL (70-110); POTASSIUM 4.4 mmol/L (3.5-5.1); SODIUM SERUM 141 mmol/L (136-145); UREA NITROGEN, BLOOD 1 mg/dL (7-18)
[2024-02-09 11:35] LABS: LITHIUM 0.55 mmol/L (0.60-1.20)
[2024-02-09 11:38] LABS: ALCOHOL, BLOOD (SERUM) < 3 mg/dL (0-10)
[2024-02-09] MEDS: SODIUM CHLORIDE 0.9% 1,000 ML IV ONE (11:46)
[2024-02-09 11:48] LABS: HCG,QUANTITATIVE 1 mIU/mL (0-6); VALPROIC ACID 93 mcg/mL (50-100)
[2024-02-09 11:52] LABS: INFLUENZA TYPE A NEGATIVE FOR TYPE A (NEGATIVE); INFLUENZA TYPE B NEGATIVE FOR TYPE B (NEGATIVE)
[2024-02-09 11:56] LABS: SARS-COV2 (COVID) ANTIGEN,FIA Negative (Negative)
[2024-02-09 11:57] LABS: RAPID GROUP A STREP NEGATIVE (NEGATIVE)
[2024-02-09 12:49] LABS: APPEARANCE,URINE HAZY (CLEAR); BILIRUBIN,URINE NEGATIVE (NEGATIVE); COLOR,URINE COLORLESS (YELLOW); GLUCOSE, URINE (UA) NEGATIVE (NEGATIVE); KETONES,URINE NEGATIVE (NEGATIVE); LEUKOCYTE ESTERASE ,URINE LARGE (NEGATIVE); NITRATE,URINE NEGATIVE (NEGATIVE); OCCULT BLOOD,URINE LARGE (NEGATIVE); PH,URINE 7.5 (5.0-8.0); PH,URINE DRUG SCREEN 7.5 (5.0-8.0); PROTEIN,URINE NEGATIVE (NEGATIVE); SPECIFIC GRAVITIY, URINE 1.004 (1.003-1.030); UROBILINOGEN,URINE <=1.0 mg/dL (<=1.0)
[2024-02-09 12:57] LABS: ALCOHOL, URINE DRUG SCREEN NEGATIVE (NEGATIVE); AMPHET/METH SCREEN,URINE NEGATIVE (NEGATIVE); BARBITURATE SCREEN, URINE NEGATIVE (NEGATIVE); BENZODIAZEPINES SCREEN,URINE NEGATIVE (NEGATIVE); CANNABINOID SCREEN,URINE NEGATIVE (NEGATIVE); COCAINE SCREEN,URINE NEGATIVE (NEGATIVE); METHADONE SCREEN, URINE NEGATIVE (NEGATIVE); OPIATE SCREEN,URINE NEGATIVE (NEGATIVE); PHENCYCLIDINE SCREEN,URINE NEGATIVE (NEGATIVE)
[2024-02-09 13:06] LABS: BACTERIA,URINE Many /HPF (None Seen); SQUAMOUS EPITHELIAL CELL,UR Many /LPF (None Seen)
[2024-02-09] MEDS: ACETAMINOPHEN 325 MG TABLET PO ONE (13:20)
[2024-02-09] MEDS: CEPHALEXIN MONOHYDRATE 500 MG CAPSULE PO ONE (13:20)
[2024-02-09 13:28] VITALS: BP 97/64; PULSE 88; RESP 18; TEMP 97.9; O2SAT 98
[2024-02-09] MEDS ORDERED: CEPH-558 PO (13:29)
== END 2024-02-09 13:57 | disposition home or self-care (01) ==
LOC: EMS 10:43
DX: F25.1 Schizoaffective disorder, depressive type (principal); N39.0 Urinary tract infection, site not specified; R51.9 Headache, unspecified; Z20.822 Contact with and (suspected) exposure to COVID-19
CPT/HCPCS: 99283; 96360; 87426; 80048; 80164; 80178; 81001; 84702; 85025; 87430; 87804; 36415; 87086; 87186; 80307; G0480; J7030